=== PATIENT | female | born 1960 | race Caucasian/White ===

== ENCOUNTER → 2017-03-28 | Outpatient (CLI) | payer BC ==
--- NOTE | 2017-03-28 15:24 | DI ---
XR SHOULDER MIN 2VW,03/28/2017 12:05 PM: Clinical History: Right shoulder pain of unspecified chronicity. Previous Exam: None at this facility. Findings: 4 views of the right shoulder are obtained, and demonstrate anatomic alignment without fractures. The surrounding soft tissues are unremarkable. The adjacent right lung and chest wall are unremarkable. Impression: Normal right shoulder.
--- NOTE | 2017-03-28 15:24 | DI ---
XR KNEE CMPT 4 OR MORE VWS, XR KNEE CMPT 4 OR MORE VWS,03/28/2017 12:05 PM: Clinical History: Right knee pain of unspecified chronicity. Previous Exam: None available. Findings: AP, lateral and sunrise views of both knees are obtained, and demonstrate loss of joint space within the medial compartments bilaterally. There is also loss of joint space within the anterior compartmen ts with osteophyte formation. The surrounding soft tissues are unremarkable. Impression: Tricompartmental degenerative changes worst involving the medial and anterior compartments bilaterall y.
== END ==
LOC: ORTHO 12:25
PROVIDERS: ATTEND Orthopaedic Surgery
DX: M25.511 Pain in right shoulder (principal); M25.561 Pain in right knee; M25.562 Pain in left knee; M17.0 Bilateral primary osteoarthritis of knee
CPT/HCPCS: 73030; 73564

== ENCOUNTER → 2017-04-07 | Outpatient (CLI) | payer BC ==
--- NOTE | 2017-04-07 10:07 | DI ---
MRI UP EXTREMITY JNT W/O CARLOTTA,04/07/2017 8:59 AM: Clinical History: Subacromial impingement of the right shoulder. Previous Exam: None at this facility. Findings: Multiplanar MR images are obtained through the right shoulder without contrast. Mild degenerative hyp ertrophy is noted of the right acromioclavicular joint with some mass effect on the underlying supras pinatus tendon. There is some interstitial tearing of the supraspinatus tendon with some associated tendinosis. There is also some tendinosis of the infraspinatus tendon with some interstitial tearing at the myote ndinous junction. There is some trace amount of fluid within the long head of the biceps tendon sheath. The long head of the biceps tendon is well seated within the bicipital groove and follows a normal co urse through the rotator cuff interval. There is some cystic changes within the humeral head. Signal within the deltoid musculature is unremarkable. The major vascular flow voids are unremarkable. The glenoid labrum demonstrates some increased signal within the anterior inferior glenoid labrum whi ch may be secondary to a prior shoulder dislocation. There is no lymphadenopathy. Impression: 1. Interstitial tearing of the supraspinatus tendon. 2. Interstitial tearing of the infraspinatus tendon. 3. Labral tear of the anterior inferior glenoid labrum. 4. Degenerative hypertrophy of the acromioclavicular joint likely playing a role in the rotator cuff tearing mentioned above.
== END ==
LOC: MRI 08:50
PROVIDERS: ATTEND Orthopaedic Surgery
DX: M75.41 Impingement syndrome of right shoulder (principal); S46.011A Strain of muscle(s) and tendon(s) of the rotator cuff of right shoulder, initial encounter
CPT/HCPCS: 73221